=== PATIENT | female | born 1985 ===

== ENCOUNTER 2016-09-30 10:49 | Emergency (ER) | payer MEDICAID, OTHER ==
[2016-09-30 10:49] VITALS: BMI 28.1
[2016-09-30 11:10] VITALS: TEMP 97.9; O2SAT 100
--- NOTE | 2016-09-30 12:00 | ED PDOC ---
Arrival/HPI - General Chief Complaint: Back Pain Time Seen by Provider: 09/30/16 11:49 Historian: Patient - History of Present Illness Narrative History of Present Illness (Text): 09/30/16 11:57 31 y.o. female who denies any significant past medical history who comes to the ED with complaint of R low back pain radiating toward the right thigh that is worse with movement x 2 days. No abd pain or fever, cough, n/, urinary symptoms , or bowel/bladder incontinence. She says she lifts heavy boxes at work. Past Medical History - Infectious Disease Hx of Infectious Diseases: None - Cardiac Hx Hypertension: Yes - Psychiatric Hx Substance Use: No - Surgical History Hx Section: Yes (x3) Other/Comment: "Nose surgery when child" - Anesthesia Hx Anesthesia Reactions: No Hx Malignant Hyperthermia: No Family/Social History Family/Social History: No Known Family HX Smoking Status: Never Smoked Hx Alcohol Use: No Hx Substance Use: No Allergies/Home Meds Allergies/Adverse Reactions: Allergies No Known Allergies Allergy (Verified 09/30/16 11:05) Review of Systems - Review of Systems Constitutional: absent: Fevers Respiratory: absent: SOB Cardiovascular: absent: Chest Pain Gastrointestinal: absent: Abdominal Pain, Nausea, Vomiting Genitourinary Female: absent: Dysuria, Frequency, Hematuria Musculoskeletal: Back Pain Physical Exam Vital Signs Temp Pulse Resp BP Pulse Ox 09/30/16 13:00 79 18 137/65 100 09/30/16 11:09 97.9 F 87 16 139/60 100 Temperature: Afebrile Blood Pressure: Normal Pulse: Regular Respiratory Rate: Normal Appearance: Positive for: Well-Appearing, Non-Toxic, Comfortable Pain Distress: None Mental Status: Positive for: Alert and Oriented X 3 - Systems Exam Head: Present: Atraumatic, Normocephalic Respiratory/Chest: Present: Clear to Auscultation, Good Air Exchange. No: Respiratory Distress, Accessory Muscle Use Cardiovascular: Present: Regular Rate and Rhythm, Normal S1, S2. No: Murmurs Abdomen: Present: Normal Bowel Sounds. No: Tenderness, Distention, Peritoneal Signs Back: Present: Midline Tenderness (mild mid lumbar tenderness) Lower Extremity: Present: Normal Inspection, NORMAL PULSES. No: Edema, Tenderness Neurological: Present: GCS=15, CN II-XII Intact, Speech Normal Skin: Present: Warm, Dry, Normal Color. No: Rashes Psychiatric: Present: Alert, Oriented x 3, Normal Insight, Normal Concentration Medical Decision Making ED Course and Treatment: 09/30/16 12:01 31 y.o. female with radicular back pain. Diff: muscular pain vs sciatica vs urinary PROCEDURE: Radiographs of the Lumbar Spine. [employer] : Dr. Mc Jennifer V. Report Date : 09/30/2016 12:45:51 FINDINGS: BONES: Normal alignment. No listhesis. No fracture. S1 spina bifida occulta DISC SPACES: Unremarkable. OTHER FINDINGS: Bilateral superolateral hip joint space narrowing with acetabular spurring consistent with osteoarthrosis -patient's age is noted Stool retention. Right marek pelvic probable phlebolith -correlate clinically IMPRESSION: No lumbar acute pathology suggested. Bilateral hip early degenerative changes - apatient's age is noted 09/30/16 14:31 Patient feels better s/p meds - informed of her mild djd of the hip - will d/c on nsaid, muscle relaxant, and tramadol and f/u primary care. - Lab Interpretations Lab Results: Lab Results 09/30/16 12:00: Urine Color Yellow, Urine Appearance Clear, Urine pH 6.5, Ur Specific [place] 1.025, Urine Protein Trace H, Urine Glucose (UA) Negative, Urine Ketones Negative, Urine Blood Negative, Urine Nitrate Negative, Urine Bilirubin Negative, Urine Urobilinogen 1.0 H, Ur Leukocyte Esterase Negative, Urine RBC Negative, Urine WBC 0 - 2, Ur Epithelial Cells Many, Urine Bacteria Few - RAD Interpretation Radiology Orders: 09/30/16 11:56 LS SPINE WITH OBL > 18 YRS OLD [RAD] Stat - Medication Orders Current Medication Orders: Discontinued Medications Ketorolac Tromethamine (Toradol) 60 mg IM STAT STA Stop: 09/30/16 11:57 Last Admin: 09/30/16 12:07 Dose: 60 MG IM Administration Charges Document 09/30/16 12:07 [facility] [place]: 09/30/16 12:07 [facility] [place] [id number][place] Charges for Administration # of IM Administrations 1 Tramadol HCl (Ultram) 50 mg PO STAT STA Stop: 09/30/16 11:57 Last Admin: 09/30/16 12:07 Dose: 50 MG Disposition/Present on Arrival - Present on Arrival Any Indicators Present on Arrival: No History of DVT/PE: No History of Uncontrolled Diabetes: No Urinary Catheter: No History of Decub. Ulcer: No History Surgical Site Infection Following: None - Disposition Have Diagnosis and Disposition been Completed?: Yes Diagnosis: Low back strain Disposition: HOME/ ROUTINE Disposition Time: 14:30 Patient Plan: Discharge Condition: GOOD Discharge Instructions (ExitCare): Acute Low Back Pain (ED) Print Language: PASHTO Additional Instructions: Avoid heavy lifting. Take the medications as prescribed. Follow up with the medical clinic. Return to the emergency department if any new concerning symptoms. Prescriptions: Baclofen [Lioresal] 1 tab PO TID PRN #15 tab PRN Reason: Pain, Moderate (4-7) Naproxen [Naprosyn] 500 mg PO BID PRN #20 tab PRN Reason: Pain traMADol [Ultram] 1 tab PO Q8H PRN #15 tab PRN Reason: Pain, Severe (8-10) Forms: WORK NOTE
[2016-09-30 12:34] LABS: PH,URINE 6.5 (4.7-8.0); URINE BILIRUBIN NEGATIVE (NEGATIVE); URINE BLOOD NEGATIVE (NEGATIVE); URINE GLUCOSE (UA) NEGATIVE (NEGATIVE); URINE KETONE NEGATIVE (NEGATIVE); URINE LEUKOCYTE ESTERASE NEGATIVE Leu/uL (NEGATIVE); URINE PROTEIN TRACE mg/dL (<30 mg/dL)
[2016-09-30 12:39] LABS: URINE APPEARANCE CLEAR (CLEAR); URINE COLOR YELLOW (YELLOW)
--- NOTE | 2016-09-30 12:47 | RAD ---
PROCEDURE: Radiographs of the Lumbar Spine. HISTORY: low back pain COMPARISON: No prior. FINDINGS: BONES: Normal alignment. No listhesis. No fracture. S1 spina bifida occulta DISC SPACES: Unremarkable. OTHER FINDINGS: Bilateral superolateral hip joint space narrowing with acetabular spurring consistent with osteoarthrosis -patient's age is noted Stool retention. Right marek pelvic probable phlebolith -correlate clinically IMPRESSION: No lumbar acute pathology suggested. Bilateral hip early degenerative changes -apatient's age is noted
[2016-09-30 13:20] LABS: URINE BACTERIA FEW (NEG); URINE EPITHELIAL CELLS MANY /hpf (0-5); URINE RBC NEGATIVE /hpf (0-2); URINE WBC 0 - 2 /hpf (0-6)
[2016-09-30 14:48] VITALS: BP 119/68; PULSE 77; RESP 20
== END 2016-09-30 14:48 | disposition home or self-care (01) ==
LOC: ED 10:49
DX: S39.012A Strain of muscle, fascia and tendon of lower back, initial encounter (principal); X58.XXXA Exposure to other specified factors, initial encounter; I10 Essential (primary) hypertension
CPT/HCPCS: 72110; 81001; 96372; 99283; J1885

== ENCOUNTER 2017-02-01 19:09 | Emergency (ER) | payer MEDICAID, OTHER ==
[2017-02-01 19:09] VITALS: BMI 28.1
[2017-02-01 19:23] VITALS: TEMP 99
[2017-02-01] MEDS ORDERED: Sodium Chloride 0.9% 1,000 ML IV STA (19:37)
[2017-02-01] MEDS ORDERED: DiphenhydrAMINE 50 mg/ml Inj IVP STA (19:37)
--- NOTE | 2017-02-01 19:39 | ED PDOC ---
Arrival/HPI - General Chief Complaint: Headache Time Seen by Provider: 02/01/17 19:27 - History of Present Illness Narrative History of Present Illness (Text): 02/01/17 19:38 32 yo female, no prior hx, presents with abdominal pain and craft. pt reports craft/ vomiting x 1 week. also reports suprapuibc pain for 2 days. no diarrhea, no dyruria, fevers, vb, lmp 8/8 Past Medical History - Provider Review Nursing Documentation Reviewed: Yes - Infectious Disease Hx of Infectious Diseases: None - Cardiac Hx Cardiac Disorders: Yes Hx Hypertension: Yes - Psychiatric Hx Substance Use: No - Surgical History Hx Section: Yes (x3) Other/Comment: "Nose surgery when child" - Anesthesia Hx Anesthesia Reactions: No Hx Malignant Hyperthermia: No Family/Social History - Physician Review Nursing Documentation Reviewed: Yes Family/Social History: Unknown Family HX Smoking Status: Never Smoked Hx Alcohol Use: No Hx Substance Use: No Allergies/Home Meds Allergies/Adverse Reactions: Allergies No Known Allergies Allergy (Verified 02/01/17 19:22) Review of Systems - Review of Systems Constitutional: Normal Eyes: Normal ENT: Normal Respiratory: Normal Cardiovascular: Normal Gastrointestinal: Abdominal Pain, Nausea, Vomiting Genitourinary Female: Normal Musculoskeletal: Normal Skin: Normal Neurological: Headache Endocrine: Normal Hemo/Lymphatic: Normal Psychiatric: Normal Physical Exam Vital Signs Temp Pulse Resp BP Pulse Ox 02/01/17 23:12 56 L 16 141/71 100 02/01/17 22:08 56 L 18 127/70 100 02/01/17 21:08 61 18 112/73 99 02/01/17 19:23 99 F 82 18 109/79 100 Temperature: Afebrile Blood Pressure: Normal Pulse: Regular Respiratory Rate: Normal Appearance: Positive for: Well-Appearing, Non-Toxic, Comfortable Pain Distress: None Mental Status: Positive for: Alert and Oriented X 3 - Systems Exam Head: Present: Atraumatic, Normocephalic Pupils: Present: PERRL Extroacular Muscles: Present: EOMI Conjunctiva: Present: Normal Mouth: Present: Moist Mucous Membranes Neck: Present: Normal Range of Motion Respiratory/Chest: Present: Clear to Auscultation, Good Air Exchange. No: Respiratory Distress, Accessory Muscle Use Cardiovascular: Present: Regular Rate and Rhythm, Normal S1, S2. No: Murmurs Abdomen: Present: Normal Bowel Sounds. No: Tenderness, Distention, Peritoneal Signs Back: Present: Normal Inspection Upper Extremity: Present: Normal Inspection. No: Cyanosis, Edema Lower Extremity: Present: Normal Inspection. No: Edema Neurological: Present: GCS=15, CN II-XII Intact, Speech Normal, Motor Func Grossly Intact, Normal Sensory Function, Normal Cerebellar Funct, Other ( smiling innad) Skin: Present: Warm, Dry, Normal Color. No: Rashes Psychiatric: Present: Alert, Oriented x 3, Normal Insight, Normal Concentration , Normal Affect Medical Decision Making ED Course and Treatment: 02/01/17 19:39 r/o uti, migraine, tension craft. no thunerclap features- labs urine pending. 02/04/17 11:07 pt reassesed imaging neg. pt states symptoms resolved. neuro intact. stable for d/c - Lab Interpretations Lab Results: 02/01/17 19:40 02/01/17 19:40 Lab Results 02/01/17 20:13: POC Glucose (mg/dL) 101 02/01/17 19:40: Sodium 139, Potassium 4.1, Chloride 101, Carbon Dioxide 26, Anion Gap 16, BUN 9, Creatinine 0.8, Est GFR ( Amer) > 60, Est GFR (Non- Af Amer) > 60, Random Glucose 81, Calcium 9.7, Total Bilirubin 0.4, AST 25, ALT 32, Alkaline Phosphatase 80, Total Protein 8.0, Albumin 4.3, Globulin 3.6, Albumin/Globulin Ratio 1.2, Lipase 142 02/01/17 19:40: Urine Color Light yellow, Urine Appearance Clear, Urine pH 6.0, Ur Specific [place] 1.010, Urine Protein Negative, Urine Glucose (UA) Negative, Urine Ketones Negative, Urine Blood Negative, Urine Nitrate Negative, Urine Bilirubin Negative, Urine Urobilinogen 0.2, Ur Leukocyte Esterase Negative, Urine HCG, Qual Negative 02/01/17 19:40: PT 11.6, INR 1.07, APTT 26.1 02/01/17 19:40: WBC 5.0, RBC 4.40, Hgb 10.0 L, Hct 31.7 L, MCV 72.0 L, MCH 22.7 L, MCHC 31.5, RDW 15.2 H, Plt Count 424, MPV 10.6, Gran % 53.4, Lymph % (Auto) 38.1 H, Coffey % (Auto) 6.9 H, Eos % (Auto) 1.2 L, Baso % (Auto) 0.4, Gran # 2.69 , Lymph # 1.9, Coffey # 0.4, Eos # 0.1, Baso # 0.02 - RAD Interpretation Radiology Orders: 02/01/17 20:45 ABD & PELVIS IV CONTRAST ONLY [CT] Stat 02/01/17 20:46 HEAD W/O CONTRAST [CT] Stat 02/01/17 21:34 TRANSVAGINAL [US] Stat - Medication Orders Current Medication Orders: Discontinued Medications Diphenhydramine HCl (Benadryl) 25 mg IVP STAT STA Stop: 02/01/17 19:38 Last Admin: 02/01/17 20:07 Dose: 25 mg Sodium Chloride (Sodium Chloride 0.9%) 1,000 mls @ 1,000 mls/hr IV .Q1H STA Stop: 02/01/17 20:36 Last Admin: 02/01/17 20:07 Dose: 1,000 mls/hr Iohexol (Omnipaque 350 100 Ml) Confirm Administered Dose 350 mg .ROUTE .STK-MED ONE Stop: 02/01/17 20:49 Metoclopramide HCl (Reglan) 10 mg IVP STAT STA Stop: 02/01/17 19:38 Last Admin: 02/01/17 20:08 Dose: 10 mg Disposition/Present on Arrival - Present on Arrival Any Indicators Present on Arrival: No History of DVT/PE: No History of Uncontrolled Diabetes: No Urinary Catheter: No History of Decub. Ulcer: No History Surgical Site Infection Following: None - Disposition Have Diagnosis and Disposition been Completed?: Yes Diagnosis: Abdominal pain, Headache Disposition: HOME/ ROUTINE Disposition Time: 11:00 Condition: STABLE Discharge Instructions (ExitCare): Ovarian Cyst (ED), Acute Headache (ED), Acute Abdominal Pain (ED) Print Language: JAPANESE Additional Instructions: please follow up with your doctor. return to er with worsening symptoms or concerns. Prescriptions: Naproxen 500 mg PO BID PRN #14 tab PRN Reason: Pain, Mild (1-3) Referrals: John Urena [Medical Doctor] - Follow up with primary Forms: [employer] (Armenian)
[2017-02-01 20:17] LABS: ALB/GLOB RATIO 1.2 (1.1-1.8); ALKALINE PHOSPHATASE 80 U/L (38-133); ALT/SGPT 32 U/L (7-56); AST/SGOT 25 U/L (15-39); BILIRUBIN,TOTAL 0.4 mg/dL (0.2-1.3); BLOOD UREA NITROGEN 9 mg/dL (7-21); CALCIUM 9.7 mg/dL (8.4-10.5); CARBON DIOXIDE 26 mmol/L (21-33); CHLORIDE 101 mmol/L (95-110); GFR AFRICAN-AMERICAN > 60; GLUCOSE,RANDOM 81 mg/dL (70-110); LIPASE 142 U/L (23-300); POTASSIUM 4.1 mmol/L (3.6-5.0); SODIUM 139 mmol/L (132-148)
[2017-02-01 20:35] LABS: BASO # 0.02 K/mm3 (0.0-2.0); BASO % 0.4 % (0.0-3.0); EOS # 0.1 (0.0-0.7); EOS % 1.2 % (1.5-5.0); GRAN # 2.69 (1.4-6.5); GRAN % 53.4 % (50.0-68.0); HEMATOCRIT 31.7 % (36.0-48.0); LYMPH # 1.9 (1.2-3.4); LYMPH % 38.1 % (22.0-35.0); MEAN CORPUSCULAR HEMOGLOBIN 22.7 pg (25.0-35.0); MEAN CORPUSCULAR HGB CONC 31.5 g/dl (31.0-37.0); MEAN PLATELET VOLUME 10.6 fl (7.0-11.0); MONO # 0.4 (0.1-0.6); MONO % 6.9 % (1.0-6.0); RED CELL DISTRIBUTION WIDTH 15.2 % (11.5-14.5)
[2017-02-01 20:38] LABS: URINE BILIRUBIN NEGATIVE (NEGATIVE); URINE BLOOD NEGATIVE (NEGATIVE); URINE GLUCOSE (UA) NEGATIVE (NEGATIVE); URINE KETONE NEGATIVE (NEGATIVE); URINE LEUKOCYTE ESTERASE NEGATIVE Leu/uL (NEGATIVE); URINE PROTEIN NEGATIVE mg/dL (<30 mg/dL); URINE UROBILINOGEN 0.2 E.U./dL (<1 E.U./dL)
[2017-02-01 20:41] LABS: URINE APPEARANCE CLEAR (CLEAR); URINE COLOR LIGHT YELLOW (YELLOW)
[2017-02-01 20:42] LABS: INR 1.07 (0.93-1.08); PARTIAL THROMBOPLASTIN TIME 26.1 Seconds (23.7-30.8)
[2017-02-01] MEDS ORDERED: Iohexol 350 MG/100 ML VIAL ONE (20:48)
--- NOTE | 2017-02-01 21:19 | CT ---
EXAM: CT Head Without Intravenous Contrast EXAM DATE/TIME: 02/01/2017 8:46 PM CLINICAL HISTORY: 32 years old, female; Pain; Headache; Tension; Additional info: THOMAS TECHNIQUE: Axial computed tomography images of the head/brain without intravenous contrast. All CT scans at this facility use one or more dose reduction techniques, viz.: automated exposure control; ma/kV adjustment per patient size (including targeted exams where dose is matched to indication; i.e. head); or iterative reconstruction technique. COMPARISON: There are no prior studies for comparison. FINDINGS: Brain: Ventricles are normal in size and configuration. There is no midline shift. There are no intra-axial or extra-axial mass lesions or areas of hemorrhage. There are no abnormal fluid collections. Josue-white differentiation is maintained. Ventricles: See above. Bones: Cranial vault is intact. Soft tissues: unremarkable Sinuses: There is no acute sinusitis. Ears and mastoids: Middle ears and mastoids are unremarkable.There is streak artifact from earrings Orbits: Orbital contents are unremarkable. IMPRESSION: No acute intracranial abnormality
--- NOTE | 2017-02-01 21:29 | CT ---
EXAM: CT Abdomen and Pelvis With Intravenous Contrast EXAM DATE/TIME: 02/01/2017 8:45 PM CLINICAL HISTORY: 32 years old, female; Pain; Abdominal pain; Localized; Lower; Additional info: Lower abd pain TECHNIQUE: Axial computed tomography images of the abdomen and pelvis with intravenous contrast. All CT scans at this facility use one or more dose reduction techniques, viz.: automated exposure control; ma/kV adjustment per patient size (including targeted exams where dose is matched to indication; i.e. head); or iterative reconstruction technique. Coronal and sagittal reformatted images were created and reviewed. CONTRAST: 100 mL of OMNI administered intravenously. COMPARISON: There are no prior studies for comparison. FINDINGS: Lower thorax: Heart size is normal. There is dependent atelectasis at the lung bases. There is minimal scarring at the lung bases ABDOMEN: Liver: There is a small cyst in the liver. Gallbladder and bile ducts: unremarkable Pancreas: unremarkable Spleen: unremarkable Adrenals: unremarkable Kidneys and ureters: unremarkable Stomach and bowel: Stomach is almost empty. Rotation is normal. Small bowel is mildly distended with fluid. There is no obstruction. Appendix and terminal ileum are unremarkable.There is moderate stool in the colon. Appendix: See stomach and bowel PELVIS: Bladder: unremarkable Reproductive: Uterus and left adnexa are unremarkable. There is prominence of the right adnexa. ABDOMEN and PELVIS: Intraperitoneal space: There is no significant fluid. No free air Bones/joints: There are no acute osseous abnormalities Soft tissues: There is mild rectus diastases Vasculature: Vascular structures are unremarkable. Lymph nodes: unremarkable IMPRESSION: No acute solid visceral or bowel abnormality; prominent right adnexa Additional findings as described above.
[2017-02-01 22:09] VITALS: PULSE 56; O2SAT 100
[2017-02-01 23:12] VITALS: BP 141/71; RESP 16
--- NOTE | 2017-02-01 23:23 | US ---
EXAM: US Pelvis Complete, Transabdominal CLINICAL HISTORY: 32 years old, female; Pain; Pelvic pain; Additional info: Right adenxal pain; LMP 01/19/17 TECHNIQUE: Real-time transabdominal pelvic ultrasound (complete) with image documentation. COMPARISON: There are no prior studies for comparison. FINDINGS: Uterus: Uterus measures approximately 11 x 3.2 x 4.9 cm. Endometrium measures approximately 4.4 mm in width. Right ovary: Right ovary measures approximately 3.7 x 1.4 x 3.4 cm. There is a dominant follicle.There is expected blood flow on Doppler imaging Left ovary: Left ovary measures approximately 2.3 x 1.5 x 2 cm. There is expected blood flow on Doppler imaging Free fluid: There is no free fluid. Bladder: Bladder is incompletely imaged IMPRESSION: Unremarkable transabdominal pelvic ultrasound EXAM: US Pelvis, Transvaginal EXAM DATE/TIME: 02/01/2017 9:34 PM CLINICAL HISTORY: 32 years old, female; Pain; Pelvic pain; Additional info: Right adenxal pain; LMP 01/19/17 TECHNIQUE: Real-time transvaginal pelvic ultrasound (complete) with image documentation. Transvaginal imaging was used for better evaluation of the endometrium and adnexa. COMPARISON: CT - ABD PELVIS IV CONTRAST ONLY 02/01/2017 8:52:43 PM FINDINGS: Uterus: Endometrium measures approximately 10 mm in width. The cervix measures approximately 4 cm in length. Right ovary: Right ovary measures approximately 3 x 1.9 x 2.6 cm. There is a dominant follicle in the right ovary. There are smaller follicles.There is expected blood flow on Doppler imaging Left ovary: Left ovary was not evaluated. IMPRESSION: Dominant follicle in the right ovary, no torsion
== END 2017-02-01 23:38 | disposition home or self-care (01) ==
LOC: ED 19:09
DX: R10.9 Unspecified abdominal pain (principal); R51 Headache
CPT/HCPCS: 70450; 74177; 76830; 80053; 81003; 82948; 83690; 84703; 85025; 85610; 85730; 96361; 96374; 96375; 99285; J1200; J2765; J7040; Q9967